=== PATIENT | female | born 1990 | race African-American/Black ===

== ENCOUNTER 2017-01-13 13:26 | Emergency (ER) | payer OTHER ==
[~2017-01-13] VITALS: Wt 97.5 kg
[2017-01-13] MEDS ORDERED: AUGMENTIN 875875 MG PO (14:08)
[2017-01-13] MEDS ORDERED: PROAIR HFA8.5 GM INH (14:08)
[2017-01-13] MEDS ORDERED: Motrin,Rufen800 MG PO (14:08)
== END 2017-01-13 14:25 | disposition home or self-care (01) ==
LOC: ED 13:26
DX: J32.9 Chronic sinusitis, unspecified (principal); Z98.890 Other specified postprocedural states

== ENCOUNTER 2017-06-04 15:36 | Emergency (ER) | payer OTHER ==
[~2017-06-04] VITALS: Ht 160 cm; Wt 86.2 kg
[~2017-06-04 15:36] MED LIST: AUGMENTIN 875875 MG PO; Motrin,Rufen800 MG PO; PROAIR HFA8.5 GM INH
[2017-06-04 16:05] LABS: BILIRUBIN NEGATIVE (NEGATIVE); BLOOD 3+ (NEGATIVE); CLARITY CLOUDY (CLEAR); COLOR YELLOW (YELLOW); GLUCOSE NEGATIVE (NEGATIVE); KETONE NEGATIVE (NEGATIVE); LEUKO ESTERASE 2+ (NEGATIVE); NITRITE NEGATIVE (NEGATIVE); UROBILINOGEN 0.2 E.U./dl (0.2-1.0)
[2017-06-04 16:25] LABS: BACTERIA 2+; RBC TNTC rbc/hpf (0-2); WBC 51-100 wbc/hpf (0-5)
[2017-06-04 16:26] LABS: BASO % 0.2 % (0.0-1.0); EOS % 0.1 % (1.0-4.0); HEMATOCRIT 29.2 % (37.0-47.0); HEMOGLOBIN 9.3 g/dl (12.0-16.0); LYMPH # 1.2 10*3/uL (1.3-4.4); LYMPH % 6.2 % (27.0-41.0); MEAN CELL VOLUME 66.8 fl (81.0-99.0); MEAN CORPUSCULAR HGB 21.3 pg (27.0-31.0); MEAN CORPUSCULAR HGB CONC 31.8 g/dl (33.0-37.0); MEAN PLATELET VOLUME 10.2 fl (9.6-12.3); MONO # 0.8 10*3/uL (0.1-1.0); MONO % 4.5 % (3.0-9.0); NEUT # 16.4 10*3/uL (2.3-7.9); NEUT % 88.4 % (47.0-73.0); PLATELET COUNT AUTOMATED 407 10*3/uL (130-400); RED BLOOD COUNT 4.37 10*6/uL (4.10-5.10); RED CELL DISTRI WIDTH 17.6 % (0-14.5); WHITE BLOOD COUNT 18.5 10*3/uL (4.8-10.8)
[2017-06-04 16:46] LABS: ALBUMIN 3.8 gm/dl (3.1-4.5); ALKALINE PHOSPHATASE 73 U/L (45-117); BUN 11 mg/dl (7-24); CHLORIDE 108 mmol/L (98-107); CREATININE 0.59 mg/dL (0.55-1.02); LIPASE 80 U/L (73-393); POTASSIUM 4.2 mmol/L (3.5-5.1); SGOT/AST 6 IU/L (3-35); SGPT/ALT 24 U/L (12-78); SODIUM 140 mmol/L (136-145); TOTAL PROTEIN 7.9 gm/dL (6.4-8.2)
[2017-06-04] MEDS ORDERED: CIPRO500 MG PO (18:45)
== END 2017-06-04 18:50 | disposition left against medical advice (07) ==
LOC: ED 15:36
PROVIDERS: Nurse Practitioner Family
DX: N39.0 Urinary tract infection, site not specified (principal); N20.0 Calculus of kidney